=== PATIENT | male | born 1985 | race Caucasian/White ===

== ENCOUNTER 2020-12-29 09:59 | Emergency (ER) | payer MEDICAID, OTHER ==
--- NOTE | 2020-12-29 10:42 | EDM.PDOC ---
ED HPI GENERAL MEDICAL PROBLEM - General Chief Complaint: Chest Pain Stated Complaint: SOB, CHEST PAIN Time Seen by Provider: 12/29/20 10:35 Source of Information: Reports: Patient, Old Records, RN History Limitations: Reports: No Limitations - History of Present Illness INITIAL COMMENTS - FREE TEXT/NARRATIVE: 35 yo male smoker presents with epigastric pain that began this past Tuesday. It was coming and going over the weekend, but has trended toward getting worse. Pain was worse with pushing to have a BM this AM. Exertion didn't seem to change things at all. No black or bloody stools. No nausea or vomiting. He did feel light-headed a couple times when the pain was at its worst. Onset: Gradual Onset Date: 12/26/20 Duration: Day(s):, Getting Worse Location: Reports: Abdomen Quality: Reports: Ache Severity: Moderate Improves with: Reports: Other (unsure) Worsens with: Reports: Other (time, straining at stool, deep breaths) Context: Reports: Other (See HPI) Associated Symptoms: Reports: No Other Symptoms Treatments PATTERN CHANGER: Reports: Other (see below) (none) Chest Pain Score (Numeric/FACES): 5 - Related Data Allergies Allergy/AdvReac Type Severity Reaction Status Date / Time No Known Allergies Allergy Verified 12/29/20 10:31 Home Meds: Home Meds Sucralfate [Carafate] 1 gm PO ACBED #120 tab 12/29/20 [Rx] Past Medical History - Past Health History Medical/Surgical History: Denies Medical/Surgical History - Past Surgical History Musculoskeletal Surgical History: Reports: Other (See Below) Other Musculoskeletal Surgeries/Procedures:: finger almost amputated with repair. Social & Family History - Tobacco Use Tobacco Use Status *Q: Light Tobacco User Years of Tobacco use: 20 Packs/Tins Daily: 0.5 - Caffeine Use Caffeine Use: Reports: Coffee, Energy Drinks - Recreational Drug Use Recreational Drug Use: Yes Recreational Drug Type: Reports: Marijuana/Hashish Recreational Drug Use Frequency: Socially ED ROS GENERAL - Review of Systems Review Of Systems: See Below Constitutional: Reports: No Symptoms HEENT: Reports: No Symptoms Respiratory: Reports: No Symptoms Cardiovascular: Reports: Lightheadedness (at times of increased pain) Endocrine: Reports: No Symptoms GI/Abdominal: Reports: Abdominal Pain (epigastric). Denies: Black Stool, Bloody Stool, Constipation, Diarrhea, Distension, Hematemesis, Hematochezia, Melena, Nausea, Vomiting : Reports: No Symptoms Musculoskeletal: Reports: No Symptoms Skin: Reports: No Symptoms Neurological: Reports: No Symptoms ED EXAM, GENERAL - Physical Exam Exam: See Below Exam Limited By: No Limitations General Appearance: Alert, WD/WN, No Apparent Distress Eye Exam: Bilateral Eye: Normal Inspection Ears: Normal External Exam, Normal Canal, Hearing Grossly Normal Ear Exam: Bilateral Ear: Auricle Normal, Canal Normal Nose: Normal Inspection, No Blood Throat/Mouth: Normal Inspection, Normal Lips, Normal Oropharynx, Normal Voice, No Airway Compromise Head: Atraumatic, Normocephalic Neck: Normal Inspection Respiratory/Chest: No Respiratory Distress, Lungs Clear, Normal Breath Sounds, No Accessory Muscle Use Cardiovascular: Regular Rate, Rhythm, No Edema GI/Abdominal: Normal Bowel Sounds, Soft, No Distention, Tender (epigastrium). No: Non-Tender, Distended Back Exam: Normal Inspection Extremities: Normal Inspection, Normal Range of Motion, Non-Tender, No Pedal Edema Neurological: Alert, Oriented, CN II-XII Intact, Normal Cognition, No Motor/Sensory Deficits Psychiatric: Normal Affect, Normal Mood Skin Exam: Warm, Dry, Intact, Normal Color, No Rash #1 Interpretation EKG Date: 12/29/20 Time: 10:25 Rhythm: NSR Rate (Beats/Min): 76 [place]: Normal P-Wave: Present QRS: Normal ST-T: Normal QT: Normal Comparison: NA - No Prior EKG Course - Vital Signs Last Recorded V/S: Last Vital Signs Temp 36.8 C 12/29/20 10:30 Pulse 87 12/29/20 10:56 Resp 11 L 12/29/20 10:56 BP 111/73 12/29/20 10:56 Pulse Ox 97 12/29/20 10:56 - Orders/Labs/Meds Orders: Active Orders 24 hr Category Date Time Status Cardiac Monitoring [RC] .As Directed Care 12/29/20 10:07 Active EKG 12 Lead [EK] Routine Ther 12/29/20 10:07 Ordered Labs: Laboratory Tests 12/29/20 12/29/20 12/29/20 Range/Units 11:08 11:08 11:08 WBC 7.7 (4.5-11.0) K/uL RBC 4.59 (4.30-5.90) M/uL Hgb 14.8 (12.0-15.0) g/dL Hct 43.4 (40.0-54.0) % MCV 95 (80-98) fL MCH 32 H (27-31) pg MCHC 34 (32-36) % Plt Count 244 (150-400) K/uL Sodium 138 L (140-148) mmol/L Potassium 4.4 (3.6-5.2) mmol/L Chloride 101 (100-108) mmol/L Carbon Dioxide 29 (21-32) mmol/L Anion Gap 12.4 (5.0-14.0) mmol/L BUN 15 (7-18) mg/dL Creatinine 0.8 (0.8-1.3) mg/dL Est Cr Clr Drug Dosing 112.11 mL/min Estimated GFR (MDRD) > 60 (>60) Glucose 97 (74-106) mg/dL Calcium 8.9 (8.5-10.1) mg/dL Total Bilirubin 0.5 D (0.2-1.0) mg/dL AST 27 D (15-37) U/L ALT 28 (12-78) U/L Alkaline Phosphatase 55 (46-116) U/L C-Reactive Protein 0.83 H (0.0-0.3) mg/dL Total Protein 6.5 (6.4-8.2) g/dL Albumin 3.9 (3.4-5.0) g/dL Globulin 2.6 (2.3-3.5) g/dL Albumin/Globulin Ratio 1.5 (1.2-2.2) Lipase 140 (73-393) U/L Meds: Medications Discontinued Medications Generic Name Dose Route Start Last Admin Trade Name Freq PRN Reason Stop Dose Admin Al Hydroxide/Mg Hydroxide 15 0 ml 12/29/20 10:48 12/29/20 10:56 ml/ Lidocaine HCl 15 ml PO 12/29/20 10:49 30 ml ONETIME ONE Administration - Radiology Interpretation Free Text/Narrative:: Gallbladder US-neg - Re-Assessments/Exams Free Text/Narrative Re-Assessment/Exam: 12/29/20 11:02 minimal change in epigastric pain after GI cocktail. Departure - Departure Time of Disposition: 13:15 Disposition: Home, Self-Care 01 Condition: Good Clinical Impression: Gastritis Qualifiers: Gastritis type: unspecified gastritis Chronicity: acute Gastritis bleeding: without bleeding Qualified Code(s): K29.00 - Acute gastritis without bleeding Instructions: Gastritis, Adult, [id number] Referrals: Charo Laura PA-C [Primary Care Provider] - Forms: ED Department Discharge Additional Instructions: Take Carafate before meals and at bedtime until gone. For pain relief use either acetaminophen(preferred) or [place]. Things to avoid: ibuprofen, Aleve(naproxen), aspirin, caffeine, carbonated beverages, tobacco, alcohol. Schedule an appt with your provider for recheck, preferably the end of this week. Return as needed. Your Rx's were sent to [facility] Sepsis Event Note (ED) - Evaluation Sepsis Screening Result: No Definite Risk - Focused Exam Vital Signs: Vital Signs Temp Pulse Resp BP Pulse Ox 12/29/20 10:56 87 11 L 111/73 97 12/29/20 10:30 36.8 C 79 12 120/73 98 - My Orders Last 24 Hours: My Active Orders 12/29/20 10:07 Cardiac Monitoring [RC] .As Directed EKG 12 Lead [EK] Routine - Assessment/Plan Last 24 Hours: My Active Orders 12/29/20 10:07 Cardiac Monitoring [RC] .As Directed EKG 12 Lead [EK] Routine
[2020-12-29] MEDS ORDERED: Alum Hydrox/Mag Hydrox/Simeth 15 ML, Lidocaine 2% 15 ML PO ONE ×2 (10:48)
[2020-12-29 10:57] VITALS: BP 111/73; PULSE 87
--- NOTE | 2020-12-29 12:57 | US ---
Abdomen Ltd CLINICAL HISTORY: Epigastric pain COMPARISON: None. TECHNIQUE: Real-time images were obtained through the right upper quadrant. FINDINGS: The liver is free of mass or biliary dilatation. Hepatic echotexture is homogeneous. The gallbladder has a normal appearance. The common bile duct measures 5 mm. The pancreas is partially obscured. No mass is identified. The right kidney has a normal appearance. The IVC is normal. IMPRESSION: Essentially normal right upper quadrant ultrasound
[2020-12-29] MEDS ORDERED: Sucralfate 1 GM Tab PO ONE (13:13)
[2020-12-29] MEDS ORDERED: Acetaminophen/HYDROcodone 325-5 MG Tab PO ONE (13:14)
== END 2020-12-29 13:39 | disposition home or self-care (01) ==
LOC: JP.ED 09:59
DX: K29.00 Acute gastritis without bleeding (principal); Z72.0 Tobacco use
CPT/HCPCS: 36415; 76705; 76705-26; 80053; 83690; 85027; 86140; 93005; 99284-25; A9270-GY

== ENCOUNTER 2023-08-16 13:35 | Emergency (ER) | payer OTHER ==
[2023-08-16 14:25] VITALS: BP 120/91; PULSE 71
[2023-08-16 15:02] LABS: APPEARANCE,URINE CLEAR (CLEAR); BACTERIA,URINE NOT SEEN; BILIRUBIN,URINE NEGATIVE (NEGATIVE); COLOR,URINE YELLOW (YELLOW); EPITHELIAL CELLS,URINE NOT SEEN; GLUCOSE,URINE NEGATIVE (NEGATIVE); KETONES,URINE NEGATIVE (NEGATIVE); LEUKOCYTE ESTERASE,URINE NEGATIVE (NEGATIVE); NITRITE,URINE NEGATIVE (NEGATIVE); OCCULT BLOOD,URINE NEGATIVE (NEGATIVE); PH,URINE 7.5 (5.0-8.0); PROTEIN,URINE NEGATIVE (NEGATIVE); RBC,URINE NOT SEEN (0-5); UROBILINOGEN,URINE 0.2 EU/dL (0.2-1.0); WBC,URINE NOT SEEN (0-5)
[2023-08-16 15:07] LABS: BASOPHILS ABSOLUTE AUTO 0.07 K/uL (0.00-0.10); BASOPHILS PERCENT AUTO 0.6 % (0.1-1.3); EOSINOPHILS ABSOLUTE AUTO 0.18 K/uL (0.00-0.40); EOSINOPHILS PERCENT AUTO 1.5 % (0.0-5.4); HEMATOCRIT 44.1 % (38.4-49.7); HEMOGLOBIN 15.8 g/dL (12.9-16.9); IMMATURE GRAN ABSOLUTE AUTO 0.06 K/uL (0.00-0.23); IMMATURE GRAN PERCENT AUTO 0.5 % (0.0-0.7); LYMPHOCYTES ABSOLUTE AUTO 2.25 K/uL (0.8-3.3); LYMPHOCYTES PERCENT AUTO 18.2 % (11.4-47.7); MEAN CORPUSCULAR HEMOGLOBIN 33.3 pg (31.6-35.5); MEAN CORPUSCULAR HGB CONC 35.8 g/dL (31.6-35.5); MONOCYTES ABSOLUTE AUTO 0.83 K/uL (0.20-0.90); MONOCYTES PERCENT AUTO 6.7 % (3.3-12.6); NEUTROPHILS ABSOLUTE AUTO 8.94 K/uL (1.0-7.6); NEUTROPHILS PERCENT AUTO 72.5 % (40.0-78.1); PLATELET COUNT,PLT 228 K/uL (130-375); RED BLOOD CELL COUNT 4.74 M/uL (4.14-5.76); WHITE BLOOD CELL COUNT,WBC 12.3 K/uL (3.2-11.0)
[2023-08-16 15:28] LABS: A/G RATIO 1.1 (1.2-2.2); ALANINE AMINOTRANSFERASE,ALT 26 U/L (12-78); ALBUMIN 3.9 g/dL (3.4-5.0); ALKALINE PHOSPHATASE 56 U/L (46-116); ANION GAP 7.9 mmol/L (5.0-14.0); ASPARTATE AMNIOTRANSFERASE,AST 17 U/L (15-37); BILIRUBIN TOTAL 0.5 mg/dL (0.2-1.0); BLOOD UREA NITROGEN,BUN 11 mg/dL (7-18); C-REACTIVE PROTEIN < 0.50 mg/dL (<0.50); CALCIUM 9.2 mg/dL (8.5-10.1); CARBON DIOXIDE,CO2 29 mmol/L (21-32); CHLORIDE,CL 103 mmol/L (100-108); CREATININE 0.8 mg/dL (0.8-1.3); EST CRCL DRUG DOSING (CG) 102.18 mL/min; ESTIMATED GFR 116 mL/min (>60); GLUCOSE RANDOM 100 mg/dL (74-106); PROTEIN TOTAL,TP 7.3 g/dL (6.4-8.2); SODIUM,NA 140 mmol/L (140-148)
[2023-08-16] MEDS: Iopamidol 612 MG/ML 100 ML Bottle IV SCH (16:21)
[2023-08-16] MEDS: Sodium Chloride 0.9% 10 ML Syringe FLUSH ONE (16:21)
[2023-08-16] MEDS: Sodium Chloride 0.9% 80 ML IV SCH (16:22)
== END 2023-08-16 18:37 | disposition home or self-care (01) ==
LOC: JP.ED 13:35
DX: K52.9 Noninfective gastroenteritis and colitis, unspecified (principal)
CPT/HCPCS: 36415; 74177; 80053; 81001; 83605; 85025; 86140; 99284; J3490; Q9967